=== PATIENT | female | born 1975 | race Caucasian/White ===

== ENCOUNTER → 2020-10-30 | Outpatient (CLI) | payer OTHER ==
[2020-10-30 08:34] LABS: HEMOGLOBIN 11.1 gm/dl (12.3-15.3); RED BLOOD COUNT 3.53 M/UL (4.00-5.10); WHITE BLOOD COUNT 5.5 K/UL (4.5-11.0)
[2020-10-30 08:58] LABS: BUN/CREATININE RATIO 13 (0-10)
== END ==
LOC: LAB 07:24
PROVIDERS: Nurse Practitioner Family
DX: R10.9 Unspecified abdominal pain (principal); K76.89 Other specified diseases of liver; E78.5 Hyperlipidemia, unspecified; E53.8 Deficiency of other specified B group vitamins; E55.9 Vitamin D deficiency, unspecified
CPT/HCPCS: 36415; 80053; 80061; 82150; 82607; 83690; 83735; 84439; 84443; 85025

== ENCOUNTER → 2020-11-29 | Outpatient (CLI) | payer SELFPAY | LOC: MRI 10:30 | DX: R19.00 Intra-abdominal and pelvic swelling, mass and lump, unspecified site (principal); R10.9 Unspecified abdominal pain; R16.1 Splenomegaly, not elsewhere classified; K76.89 Other specified diseases of liver | CPT/HCPCS: 74183; A9577 ==